=== PATIENT | female | born 1945 | race Caucasian/White ===

== ENCOUNTER 2024-10-17 09:13 | Outpatient (CLI) | payer MEDICARE, OTHER | END 2024-10-17 09:14 | disposition home or self-care (01) | LOC: CSHCT 09:13 | PROVIDERS: ATTEND Family Medicine | DX: R41.3 Other amnesia (principal); G93.89 Other specified disorders of brain; J32.0 Chronic maxillary sinusitis | CPT/HCPCS: 70460; 82565 ==

== ENCOUNTER 2025-06-09 14:28 | Outpatient (CLI) | payer MEDICARE, OTHER | END 2025-06-09 14:29 | disposition home or self-care (01) | LOC: CSHMRI 14:28 | PROVIDERS: ATTEND Psychiatry & Neurology Neurology | DX: G31.09 Other frontotemporal neurocognitive disorder (principal); G30.9 Alzheimer's disease, unspecified; R90.82 White matter disease, unspecified; G93.89 Other specified disorders of brain | CPT/HCPCS: 70551 ==